=== PATIENT | male | born 1950 | race Caucasian/White ===

== ENCOUNTER 2016-07-15 19:53 | Observation (INO) | payer BC, MEDICARE ==
[~2016-07-15] VITALS: Ht 180.3 cm; Wt 105.3 kg
--- NOTE | ~2016-07-15 | CATH ---
Cardiac Diagnostic Report Demographics Patient Name MARLON Saenz Gender Male Date of 1950 Age 66 year(s) Patient Number [id number] Date of Study 07/16/2016 Visit Number [id number] Room Number 407 Corporate ID Ht 180.34 cm Wt 106.6 kg Accession Number [id number] BSA 2.26 m kg/m Referring Maru Qiu MD Primary Physician Physician Performing ehling Jaspreet R Secondary Physician Physician Diagnostic Fruehling Jaspreet R Assisting Physician Physician Interventional Physician Sample Hand Physician Findings and Conclusions Diagnostic Findings and Conclusion 1. 2 vessel CAD. 2. Widely patent stents in proximal and mid LAD. 3. 80% distal, focal PDA 4. EDP 6mmHg Diagnostic Recommendations 1. Medical management Procedure Description The patient was brought to the diagnostic cardiac catheterization laboratory in the fasting, non-sedated state. Informed consent was obtained in the written and verbal form after the risks and benefits were explained. The patient had no further questions and agreed to proceed. The planned puncture-incision site(s) were shaved and prepped with ChloraPrep and draped in the usual sterile manner. Conscious sedation, supplemental oxygen, and pain control medications were delivered by a registered nurse under physician guidance. Surface ECG rhythm, blood pressure measurement, and pulse oximetry were monitored throughout the procedure. Arterial access. The right radial access site was infiltrated with lidocaine. The vessel was entered with the Seldinger technique. A sheath was advanced into the vessel and used for catheter placement. Selective left coronary angiography. A Jcatheter was advanced into the left coronary vessel ostium under Fluoroscopic guidance. Contrast was injected by hand. Images were obtained in multiple projections. Selective right coronary angiography. A catheter was advanced into the right coronary vessel ostium under fluoroscopic guidance. Contrast was injected by hand. Images were obtained in multiple projections. Left heart catheterization. A catheter was advanced across the aortic valve to the left ventricle under fluoroscopic guidance. Resting hemodynamics were obtained. Arterial artery hemostasis was achieved. The patient was transferred to a regular nursing floor via cart accompanied by a nurse. The patient left the laboratory in stable condition. Diagnostic Cath Status: Urgent Procedure Procedure Type Diagnostic procedure:Angiography:, Coronary Angios w/[facility] Indications: Prior PCI with stent placement, Hypertension, Hyperlipidemia and Chest pain. The procedure was explained in detail to the patient. Risks, complications and alternative treatments were reviewed. Written consent was obtained. Medications Reviewed with Patient prior to Procedure. Complications: No Complication. Angiographic Findings Dominance: Right Cardiac Arteries and Lesion Findings LMCA: Abnormal. Lesion on LMCA: Distal subsection.30% stenosis . LAD: Abnormal.There is a previous stent on Prox LAD Proximal subsection showing wide patency. There is a previous stent on Dist LAD showing wide patency. Lesion on Prox LAD: 30% stenosis . Lesion on Dist LAD: 30% stenosis . Comments:30% narrowing after stent LCx: Abnormal. Lesion on Mid CX: 40% stenosis . RCA: Abnormal. Lesion on Prox RCA: 30% stenosis . Lesion on Mid RCA: 30% stenosis . Lesion on R PDA: Distal subsection.80% stenosis . Coronary Tree Procedure Data Procedure Date Date: 07/16/2016Start: 01:34 PM Entry Locations - Percutaneous access was performed through the Right Radial artery (Primary location). A 6 Fr sheath was inserted. Hemostasis was successfully obtained using a TR band. Procedure Medications Order and Administration + + +-------+-------+ !Time !Medication !Dosage !Route ! + + +-------+-------+ !07/16/2016 !Versed !2 mg !I.V. ! !01:37 PM ! ! ! ! + + +-------+-------+ !07/16/2016 !Fentanyl !25 mcg !I.V. ! !01:37 PM ! ! ! ! + + +-------+-------+ !07/16/2016 !Sodium Chloride !10 ml !I.V. ! !01:37 PM ! ! ! ! + + +-------+-------+ !07/16/2016 !Fentanyl !25 mcg !I.V. ! !01:40 PM ! ! ! ! + + +-------+-------+ !07/16/2016 !Benadryl !25 mg !I.V. ! !01:40 PM ! ! ! ! + + +-------+-------+ !07/16/2016 !Baby Aspirin (ACC_4) !324 mg !P.O. ! !01:42 PM ! ! ! ! + + +-------+-------+ !07/16/2016 !SF Radial Cocktail: 200mcg Nitro, 2.5 mg ! !I.A. ! !01:45 PM !Verapamil, 5000u Heparin ! ! ! + + +-------+-------+ !07/16/2016 !Sodium Chloride !10 ml !I.V. ! !01:46 PM ! ! ! ! + + +-------+-------+ !07/16/2016 !Fentanyl !25 mcg !I.V. ! !01:47 PM ! ! ! ! + + +-------+-------+ !07/16/2016 !Versed !1 mg !I.V. ! !01:47 PM ! ! ! ! + + +-------+-------+ Devices Used - ACATH 6F FR4 CATHETER 100CMwas used for:Right coronary angiography. - ACATH 6FR FL3.5 CATHETER 100CMwas used for:Left coronary angiography. Contrast Material - Isovue 85347 ml Fluoroscopy Time: Diagnostic: 3:06 minutes. Total: 3:06 minutes. Fluoroscopy Dose: Diagnostic: 629 mGy. Total: 629 mGy. Estimated Blood Loss: 12 ml. Medical History Allergies - No known allergies. Risk Factors The patient risk factors include:prior PCI on 01/09/2011;hypercholesterolemia, hypertension, last creatinine: 0.9 mg/dl, creatinine clearance: 123.38 ml/min and prior MO . Admission Data Admission Date: 07/15/2016 Admission Time: 08:50 PM Insurance Payors: Private health insurance. Clinical Evaluation Leading to Procedure Diagnosed on 07/16/2016 10:50 AM. - The patient's CAD presentation was assessed as: Unstable angina. - The patient's anginal syndrome during the past two weeks was assessed as: Class III according to the [place] Cardiovascular [employer] Classification System (CCS). Anti-anginal medications were prescribed during the past two weeks. The medications are: Beta Blockers and Ca channel Blockers. Hemodynamics Condition: Rest O2 Consumption: Estimated: 279.06Heart Rate: 88 bpm Pressures (mmHg) +-----+ + !Site !Pressure ! +-----+ + !AO !129/84 (103) ! +-----+ + !AO !121/70 (92) ! +-----+ + !LV !139/2 ,6 ! +-----+ + !AO !132/72 (96) ! +-----+ + !LV !136/0 ,4 ! +-----+ + Valve Gradients and Areas + +---------+---------+---------+ +---------+ + !Valve !Peak !Mean !Area !Index !Flow !Source ! + +---------+---------+---------+ +---------+ + !Aortic !4 !14 ! ! ! ! ! + +---------+---------+---------+ +---------+ + !Aortic !4 !14 ! ! ! ! ! + +---------+---------+---------+ +---------+ + Shunts Oxygen Values O2 Capacity 183.6 O2 Consumption 279.06 Discharge Data Discharge Date: 07/17/2016 Hospital Status: Inpatient Signatures
--- NOTE | ~2016-07-15 | ECH ---
Transthoracic Echocardiography Report (TTE) Demographics Patient Name DOROTEO MASON Date of Study 07/16/2016 Patient Number [id number] Visit Number [id number] Date of 1950 Room Number 407 Accession Number [id number] Gender Male Age 66 year(s) Referring Maru Qiu MD [employer] Evelyne Dean Physician Tyson Chaudhry MD [facility] Physician Interpreting Kelin Tirado Vice President Of Academic Affairs Physician MD Supervising Ordering Physician Tyson Chaudhry MD, MD/P Nurse Stress Medical Insurance Verifier Conclusions Summary Technically adequate exam. The estimated left ventricular ejection fraction is 60%. Diastolic assessment reveals Grade I diastolic dysfunction. The right atrium is mildly dilated. There is mild aortic stenosis by the Continuity Equation. The peak velocity is 2.7 m/s, the mean gradient is 15 mmHg, and the valve area based on the continuity equation is 1.4 cm2, stroke volume index is 35 ml/m2. Peak velocity obtained at SSN. Cannot rule out a possible bicuspid aortic valve. There is mild aortic regurgitation by color Doppler. Procedure Type of Study TTE procedure:Echo Complete SF. Procedure Date Date: 07/16/2016 Start: 02:42 PM Technical Quality: Good visualization Indications:Chest pain, Coronary artery disease and Hypertension. Additional Indications:History of stents Appropriate Use Criteria: 9 Height: 71 inches Weight: 235.01 pounds BSA: 2.26 m Rhythm: NSR HR: 72 bpm BP: 129/65 mmHg Allergies - No known allergies. M-Mode/2D Measurements LV Diastolic Dimension: 5.29 cm LV Systolic Dimension: 3.82 cm LV Septum Diastolic: 0.87 cm LV PW Diastolic: 0.84 cm AO Root Dimension: 3.26 cm Cardiac Output: 5.68 l/min LA Dimension: 3.7 cm Cardiac Index: 2.51 l/min*m RV Diastolic Dimension: 3.67 cm LA volume index: 31 ml/m LVOT: 1.91 cm LVOT VTI: 27.54 cm RV Base: 3.4 cm LV Stroke volume: 78.87 ml RV Mid: 1.9 cm LV Stroke volume index: 34.9 ml/m TAPSE: 3 cm TDI-S': 13 cm/s Doppler Measurements AV Peak Velocity: 2.7 m/s MV Peak E-Wave: 0.69 m/s AV Peak Gradient: 29.16 mmHg MV Peak A-Wave: 0.65 m/s AV Mean Gradient: 15.4 mmHg MV E/A Ratio: 1.07 LVOT Peak Velocity: 1.08 m/s MV P1/2t: 57.3 msec AV Area (Continuity):1.36 cm AV P1/2t: 544.8 msec MV Deceleration Time: 153.3 msec TR Velocity:2.11 m/s MV Area (PHT): 3.84 cm TR Gradient:17.84 mmHg PV Peak Velocity: 1.01 m/s Estimated RAP:5 mmHg PV Peak Gradient: 4.07 mmHg Estimated RVSP: 23 mmHg Estimated PASP: 22.84 mmHg E' Septal Velocity: 0.07 m/s A' Septal Velocity: 0.1 m/s E' Lateral Velocity: 0.09 m/s A' Lateral Velocity: 0.1 m/s RA Area: 18.68 cm Findings Left Ventricle Normal left ventricle size and function. Diastolic assessment reveals Grade I diastolic dysfunction. Right Ventricle Normal right ventricle structure and function. Left Atrium Normal left atrial size. Right Atrium The right atrium is mildly dilated. Mitral Valve Normal mitral valve structure and function. Aortic Valve There is mild aortic stenosis by the Continuity Equation. The peak velocity is 2.7 m/s, the mean gradient is 15 mmHg, and the valve area based on the continuity equation is 1.4 cm2, stroke volume index is 35 ml/m2. Peak velocity obtained at SSN. There is mild aortic regurgitation by color Doppler. Tricuspid Valve Normal tricuspid valve structure and function. Trivial tricuspid regurgitation by color Doppler. Normal pulmonary pressures. Pulmonic Valve The pulmonic valve is not well visualized. Trivial pulmonic valve regurgitation by color Doppler. Pericardial Effusion No evidence of pericardial effusion. Miscellaneous Visualized portions of the aortic root and ascending aorta appear normal in size. Pleural Effusion No evidence of pleural effusion. Contractility Score LV regional wall motion:(0-Non visualized 1-Normal 2-Hypokinesis 3-Akinesis 4-Dyskinesis 5-Aneurysm) Signature
[~2016-07-15 19:53] MED LIST: ASA CHILDREN'S81 MG PO; COLACE-DPS100 MG PO; HYDREA500 MG PO; HYDROCHLOROTHIA25 MG PO; LIPITOR40 MG PO; NITROGLYCERIN0.4 MG SL; NORVASC DPS10 MG PO; OMEPRAZOLE20 MG PO; OXYCODONE IR 5MG PO; PERCOCET 5 DPS1 TAB PO; SENOKOT S1 TAB PO; TOPROL XL DPS50 MG PO; TYLENOL DPS325 MG PO; ULTRAM50 MG PO; VALIUM-DPS2 MG PO; XARELTO10 MG PO
[2016-07-17] MEDS ORDERED: MOBIC15 MG PO (14:31)
[2016-07-17] MEDS ORDERED: VITAMIN B-121000 MCG PO (14:31)
[2016-07-17] MEDS ORDERED: FOLIC ACID0.4 MG PO (14:32)
[2016-07-17] MEDS ORDERED: POTASSIUM CHLO20 ME2 PO (14:32)
--- NOTE | 2016-07-19 10:36 | CO ---
ADMIT: 07/15/2016 RM/LOC: 407 [facility] MR#: [id number] [address] [address] DOROTEO MASON [address] [place] [address] Consultation SEX: M AGE: 66 : 1950 DATE OF CONSULTATION: 07/16/2016 ATTENDING PHYSICIAN: Hiram Mahoney CONSULTING PHYSICIAN: Jose Mehta MD REASON FOR CONSULT: Chest pain. Pamela Tillman RN, scribing for Jose Mehta MD HISTORY OF PRESENT ILLNESS: Doroteo is a pleasant 66-year-old gentleman, I have been asked to see in Cardiology consultation by Dr. Mahoney for chest discomfort. He has prior history of coronary artery disease status post non-ST elevated [place] in 2010 resulting in drug-eluting stent to proximal LAD. He then had repeat cardiac catheterization 2 months later resulting in mid LAD drug- eluting stent placement. Since then, he had done relatively well. He follows regularly with Dr. Syed and was seen in April of this year. Last echocardiogram was performed in August of 2014, showing normal ejection fraction, wall motion, and valvular function. He had stress test at that time that was normal as well. He has history of hypertension, hyperlipidemia, and does have elevated blood sugars. Doroteo presented to [facility] to the emergency room last night with complaints of chest discomfort that he described as a severe pressure and heaviness. He stated over the weekend, he was having stuttering chest pain off and on that would resolve on its own quickly. Last night, about 7-7:30 when was sitting at home after spending time with his grandchildren, he began to have severe chest pressure, feeling like one of his granddaughters was sitting on his chest. He was short of breath. He denies any nausea, diaphoresis, lightheadedness, or palpitations. The pain continued intensify and by 7:30 p.m., he felt that it was severe and proceeded to the emergency room. He was given sublingual nitroglycerin in the emergency room, which resolved his symptoms. He states this episode lasted about an hour total. He reports that the symptoms were exactly like what he experienced prior to PCI in 2010. Of note, he has noted some increased edema over the last few weeks that does improve with elevation. He has peripheral neuropathy that limits his activities and so he is unable to say if he has had any change in his activity tolerance at this point. Currently, he is pain free. Cardiac enzymes are negative x3. EKG does not show any significant ST-T changes, which would indicate STEMI. PAST MEDICAL HISTORY: Hypertension, hyperlipidemia, coronary artery disease outlined above, and osteoarthritis. PAST SURGICAL HISTORY: Includes neck surgery, back surgery, knee surgery. ALLERGIES: NO KNOWN MEDICATION ALLERGIES. MEDICATIONS: Current medications include: ADMIT: 07/15/2016 RM/LOC: 407 [facility] MR#: [id number] [address] [place], [place] [id number] DOROTEO MASON [address] [place] [address] Consultation SEX: M AGE: 66 : 1950 1. Lipitor 40 mg daily. 2. Amlodipine 10 mg daily. 3. Hydroxyurea 500 mg daily. 4. Hydrochlorothiazide 25 mg daily. 5. Metoprolol ER 50 mg daily. 6. Aspirin 162 mg daily. 7. Vitamin B12 of 1000 mcg daily. 8. Folic acid 400 mcg daily. FAMILY HISTORY: Positive family history of hypertension and congestive heart failure. Positive family history of prostate cancer. Denies family history of stroke. SOCIAL HISTORY: Dortoeo is . He lives at home with his . He is a salesman and continues to work. He has 3 children. He is a former smoker, 45 pack year history. History of about 2 alcoholic beverages a day. He drinks coffee on a regular basis. Denies any special diet. REVIEW OF SYSTEMS: GENERAL: Denies fatigue, fever, chills, sweats, rash, or weight loss. EYES: Denies double vision, blurred vision, cataracts, or glaucoma. ENT: Denies hearing loss or problems with nose, mouth or throat. PULMONARY: Denies cough, sputum production, asthma, emphysema or bronchitis. Denies snoring loudly, wakefulness at night, or fatigue upon awakening. GASTROINTESTINAL: History of acid reflux, he states this has been ongoing for about a year off and on. Denies any GI bleeding, gallbladder issues, or liver issues. GENITOURINARY: Denies dysuria, hematuria, nocturia, urinary tract infection, or kidney stones. Denies history of renal insufficiency or failure. MUSCULOSKELETAL: Osteoarthritis. He has history of back and neck surgery. Denies any current muscle or joint pains. ENDOCRINE: The blood sugar is elevated, no formal diagnosis of diabetes. HEMATOLOGIC: Denies history of anemia, easy bruising, or cancer. NEUROLOGIC: Denies chronic headaches, dizziness, syncope, stroke, seizures or numbness or tingling. PSYCHIATRIC: Denies history of mental illness or feelings of depression. PHYSICAL EXAMINATION: VITAL SIGNS: Blood pressure 129/65, heart rate 72, respirations 16, temperature 96.9, and oxygenation 98% on room air. SKIN: [place], warm and dry. EYES: Sclerae clear. No xanthelasmas. ENT: Oral mucosa is pink and moist. No jugular venous distention or carotid bruits. CHEST: Respirations are even and unlabored. Lungs are clear to auscultation. HEART: Regular rate and rhythm. Normal S1, S2. No murmurs, rubs or gallops. ABDOMEN: Soft and nontender. MUSCULOSKELETAL: Gait is normal. EXTREMITIES: Peripheral pulses palpable. No clubbing, cyanosis or edema. ADMIT: 07/15/2016 RM/LOC: 407 [facility] MR#: [id number] [id number] [address] [place] [address] Consultation SEX: M AGE: 66 : 1950 PSYCHIATRIC: Alert and oriented. Mood and affect are appropriate. DIAGNOSTIC DATA: Sodium 136, potassium 3.1, BUN 10, creatinine 0.9, glucose 95, magnesium 2.1. CK 157, MB 3.4, troponin less than 0.015 on third set. White blood cell count 6.8, hemoglobin 13.5, hematocrit 38.6, and platelets 414. ASSESSMENT: 1. Unstable angina. 2. Coronary disease. 3. Hyperlipidemia. 4. Hypertension. PLAN: With stuttering symptoms this weekend and increased pain last night and pressure, I would recommend checking echocardiogram for any wall motion abnormalities, valvular abnormalities, or decreased ejection fraction and I discussed with patient recommending cardiac catheterization for further evaluation and possible treatment of his symptoms. I discussed risks, benefits, and alternatives to cardiac catheterization and with risks including, but not limited to bleeding, infection, vessel damage, reaction to contrast dye, kidney dysfunction due to contrast dye, stroke, myocardial infarction, rarely loss of life. He states understanding and wishes to proceed. I will make final recommendations pending results. Thank you for the consultation. I have read and agree with the documentation that has been completed regarding this visit. By signing this record, I attest that the documentation was completed in my physical presence and is an accurate record of the encounter. Pamela Tillman RN / Buzz. Isidoro Mehta MD / siomara JOB #: [id number] CC: Hiram Mahoney, Attending Physician Hiram Mahoney, Family Physician
--- NOTE | 2016-07-23 19:06 | ER ---
ADMIT: 07/15/2016 RM/LOC: 407 [facility] MR#: [id number] [address] [address] [place] [address] Emergency Room Report SEX: M AGE: 66 : 1950 DATE: 07/15/2016 HISTORY OF PRESENT ILLNESS: The patient is a 66-year-old male with a past medical history of coronary artery disease and 2 stents and hypertension, who came to the ER with chief complaint of chest pain. The patient states the last 3 to 4 days he has on and off chest pain, and he has a sedentary life and he was behind a desk that the pain started in the morning and it goes away and again it comes back and the pain is mostly in the middle of the chest and is pressure like and is moderate in severity, 6/10, when the patient got to the ER, he already had 45 minutes of chest pain, the chest pain was not pleuritic, the patient also denies any radiation or diaphoresis. The patient took 2 baby aspirin at home and was brought to the ER. In the ER, the blood pressure systolic was 180/90s, the patient heart rate was 75, and O2 saturation was 96% on room air. The patient with moderate pain 6-7/10, the patient received 2 more baby aspirins and received one sublingual 0.4 mg nitroglycerin, which per the patient significantly decreased the pain to 1 to 2/10. Just to mention that the patient did not use any erectile dysfunction medications in the last 72 hours. The patient was put on nitroglycerin paste, EKG did not show any ST or T changes or Q-waves or arrhythmia, troponin I was negative. Medicine was consulted, and the patient was admitted for further followups and treatments, chest pain, rule out acute coronary syndrome. Vipin Ma MD/ siomara JOB #: [id number] CC: Hiram Mahoney DO, Attending Physician Hiram Mahoney DO, Family Physician
--- NOTE | 2016-07-31 08:23 | HP ---
ADMIT: 07/15/2016 RM/LOC: 407 [facility] MR#: [id number] [facility] [address] [place], [place] [address] [place] [address] History and Physical SEX: M AGE: 66 : 1950 DATE OF SERVICE: 07/16/2016 REASON FOR HOSPITALIZATION: Chest pain. HISTORY OF PRESENT ILLNESS: Mr. Mason is a 66-year-old male patient of mine, who has a history of coronary artery disease, disease and coronary stenting. He is normally seen by Dr. Neville and Dr. Ricks at [facility]. He presented after having episodic chest discomfort over the past several weeks. He called and we are trying to make arrangements for an outpatient cardiac stress evaluation, however, his insurance company would not approve of this and continued to deny coverage for stress evaluation. Ultimately, he developed an episode of chest discomfort and ended up in the emergency room overnight, and we are now admitting him to rule out AL and further evaluate. He also has a history of hypertension, gout, cervical DJD, hypercholesterolemia, DJD, BPH, and thrombocytosis. SOCIAL HISTORY: He is . He does not smoke. He does have a prior but remote history of tobacco. MEDICATIONS: His current medicines are: 1. Nitrostat. 2. Meloxicam. 3. Atorvastatin. 4. Amlodipine. 5. Hydroxyurea. 6. Hydrochlorothiazide. 7. Metoprolol. 8. Aspirin. 9. B12. 10.Folate. REVIEW OF SYSTEMS: Positive for chest discomfort as above. No nausea, vomiting, diarrhea, constipation, bleeding or dysuria. PHYSICAL EXAMINATION: GENERAL: On exam, he is pain free. VITAL SIGNS: Currently, blood pressure is under control. HEART: Regular. ADMIT: 07/15/2016 RM/LOC: 407 [facility] MR#: [id number] [facility] [address] [place], [place] [address] [place] [address] History and Physical SEX: M AGE: 66 : 1950 LUNGS: Clear. ABDOMEN: Soft. No peripheral edema. LABORATORY DATA: Potassium is 3.1. CK and troponins are negative. Chest x- ray is negative. IMPRESSION: 1. Coronary artery disease with chest pain. 2. Hypokalemia. PLAN: Admit to telemetry. Serial enzymes, Cardiology evaluation, and replace potassium. Hiram Mahoney DO/ modl JOB #: [id number] CC: Hiram Mahoney, Attending Physician Hiram Mahoney, Family Physician
== END 2016-07-17 11:14 | disposition home or self-care (01) ==
LOC: ER 19:53 → 4PCU 20:50
PROVIDERS: ADMIT Internal Medicine Infectious Disease
DX: I35.2 Nonrheumatic aortic (valve) stenosis with insufficiency (principal); I25.110 Atherosclerotic heart disease of native coronary artery with unstable angina pectoris; I10 Essential (primary) hypertension; E66.9 Obesity, unspecified; E87.6 Hypokalemia; E78.5 Hyperlipidemia, unspecified; Z79.82 Long term (current) use of aspirin; Z79.899 Other long term (current) drug therapy